=== PATIENT | female | born 1950 | race Caucasian/White ===

== ENCOUNTER → 2021-02-25 | Outpatient (CLI) | payer OTHER, BC ==
[~2021-02-25] MED LIST: ACIPHEX 20 MG T20 MG PO; AMITRIPTYLINE H25 M3 PO; AROMASIN25 MG PO; FAMOTIDINE 40 M40 M1 PO; JUICE PLUS PO; LEVOTHYROXINE112 MC1 PO; LUMIGAN5 ML OPHTHALMIC; OMEGA-3 FISH1200 MG PO; PROBIOTIC1 EAC7 PO; VITAMIN B COMP1 EACH PO; VITAMIN C1000 MG PO; WELLBUTRIN SR150 M1 PO
[2021-02-25 11:18] LABS: HEMATOCRIT 40.2 % (37.0-47.0); HEMOGLOBIN 13.5 gm/dL (12.0-15.0); MCHC 33.5 g/dL (28.0-37.0); MCV 92.5 fL (80.0-100.0); RBC 4.35 mil/uL (4.20-5.00); RDW 13.4 % (10.5-14.5); WBC 6.3 thou/uL (4.0-11.0)
[2021-02-25 11:31] LABS: ALBUMIN 3.8 g/dL (3.4-5.0); CALCIUM 9.2 mg/dL (8.5-10.1); CREATININE 1.3 mg/dL (0.6-1.0); POTASSIUM 3.9 mmol/L (3.5-5.1)
[2021-02-25 11:33] LABS: URINE BILIRUBIN NEGATIVE (Negative); URINE BLOOD NEGATIVE (Negative); URINE CLARITY CLEAR; URINE COLOR YELLOW; URINE GLUCOSE-RANDOM* NEGATIVE (Negative); URINE KETONES NEGATIVE (Negative); URINE NITRITE-REFLEX NEGATIVE (Negative); URINE PROTEIN (DIPSTICK) NEGATIVE (Negative); URINE UROBILINOGEN 0.2 E.U./dl (0.2-1.0)
[2021-02-25 11:34] LABS: URINE LEUKOCYTES-REFLEX 1+ (Negative)
[2021-02-25 11:44] LABS: INR 0.95; PROTIME 10.4 Seconds (10.5-12.1)
[2021-02-25 11:49] LABS: CASTS None Seen /LPF (None Seen); SQUAMOUS 0-3 Few /LPF (0-3)
[2021-02-25 11:50] LABS: BACTERIA-REFLEX None Seen /HPF (None Seen); CRYSTALS None Seen /LPF (None Seen); MUCUS 4-6 Moderate strn/LPF (None Seen); URINE RBC None Seen /HPF (NONE SEEN); URINE WBC-REFLEX 0-5 Rare /HPF (0-5)
--- NOTE | 2021-02-26 08:25 | EKG ---
[place] [address] [facility] 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 ANTHONY : 1950 Requested By: Mickey Isbell Order Number: [id number] MD: Davide Raphael Measurements Intervals Moose Rate: 97 P: 62 WY: 140 QRS: -19 QRSD: 84 T: 53 QT: 340 QTc: 432 Interpretive Statements Sinus rhythm cannot rule out inferior infarct, age indeterminate poor R wave progression No previous ECG available for comparison Electronically Signed On 02-26-2021 8:25:34 CDT by Davide Raphael [email or web address] <ELECTRONICALLY SIGNED> By: Davide Raphael MD, [facility] 02/26/21 0825 1114 1114 Davide Raphael MD, FACC /EPI
== END ==
LOC: PAC 10:42
PROVIDERS: ATTEND Orthopaedic Surgery
DX: M17.12 Unilateral primary osteoarthritis, left knee (principal)

== ENCOUNTER 2021-03-06 06:56 | Observation (INO) | payer OTHER, BC ==
[~2021-03-06] VITALS: Ht 170.2 cm; Wt 90.7 kg
--- NOTE | ~2021-03-06 | O ---
[facility] [place] [address] [place] [address] OPERATIVE REPORT Name: LEO MARTIN Room #: 150-4 [facility] M.R.#: [id number] Admission: 03/06/21 Attend Phys: Mickey Isbell MD Discharge: Date of : 52 Report #: [id number] THIS REPORT FOR: cc: Aissatou Hudson, Aissatou Camp,Mickey Camacho MD ~ DATE OF SERVICE: 03/06/2021 PREOPERATIVE DIAGNOSIS: Left knee osteoarthritis. POSTOPERATIVE DIAGNOSIS: Left knee osteoarthritis. PROCEDURE: Left total knee arthroplasty using Navio robotic assistance. SURGEON: Mickey Isbell MD. TOLL REPAIRER CENTRAL OFFICE: Destiny Bronson PA-C. INDICATION FOR TOLL REPAIRER CENTRAL OFFICE: Throughout the case, extensive retraction, manipulation of the knee was required. This was afforded to me by my insurance claims assistant. ANESTHESIA: LMA with adductor canal block. IMPLANTS: [employer] size 4 Journey II BCS Oxinium femur, size 3 tibia, size 32 patella and a size 11 polyethylene. TOURNIQUET TIME: 55 minutes. ESTIMATED BLOOD LOSS: 25 mL COMPLICATIONS: None. SPECIMENS: None. CONDITION UPON LEAVING THE OPERATING ROOM: Stable. INDICATIONS FOR PROCEDURE: The patient is a 70-year-old female with left knee osteoarthritis. She had failed conservative measures for this and after discussion with her, she elected for left total knee arthroplasty. DESCRIPTION OF PROCEDURE: Risks, benefits, alternatives, complications were discussed in detail with the patient including but not limited to risk of anesthesia, risk of damage to nerves, arteries, blood vessels, risk for infection, bleeding, risk for continued knee pain and need for reoperation. Informed consent was obtained from the patient. Left knee was appropriately marked in the preoperative holding area. IV Ancef was given for preoperative [facility] [address] [address] OPERATIVE REPORT Name: LEO MARTIN SIVA Room #: 150-4 [facility] Freddy#: [id number] Admission: 03/06/21 Attend Phys: Mickey Isbell MD Discharge: Date of : 52 Report #: [id number] antibiotics. She was brought to the operating room and placed in supine position on the operating table. LMA anesthesia was induced without complication. Tourniquet was placed on the left thigh. Left lower extremity was prepped and draped in normal sterile fashion. Timeout was performed properly identifying the patient and procedure as well as instrumentation. All in the operating room in agreement. Left lower extremity was exsanguinated, tourniquet was inflated. Tourniquet time was 55 minutes. Standard midline approach to the knee was made with 10 blade through the skin. Dissection was taken down sharply to the fascia and deep flaps were developed medially and laterally. Fresh 10 blade was used to make a medial parapatellar arthrotomy and the knee was inspected. There was severe patellofemoral compartment osteoarthritis with moderate medial and lateral compartment osteoarthritis. ACL and PCL were removed sharply. Reference pins were placed in the femur and the tibia. The knee was digitally mapped using the Fit Steps robotic system. Intraoperative plan was made. We sized the size 4 femur, the size 3 tibia and a 10 spacer. After acceptance of the intraoperative plan, the distal femoral cut was made with Navio bur. Distal femoral cutting block was pinned in place and chamfer cuts were made. Attention was turned to the tibia. Remainder of the menisci removed with Bovie cautery. Tibial resection guide was pinned in place using Navio for placement. Tibial resection was made. Flexion and extension gaps were checked and found to have good balance in flexion and extension both medially and laterally. Tibia sized, found to be a size 3. A size 3 tibial trial was placed, pinned and punch. A size 4 femoral trial was placed and box cut was made. This was then trialed with a size 10 and then a size 11 polyethylene. Size 11 polyethylene demonstrated 1-2 mm laxity medially and laterally throughout range of motion of the knee. A 9 mm of bone was resected from the posterior surface of the patella and a size 32 patellar trial button was placed. Knee was taken through range of motion, found to be stable, found to have good patellar tracking. Trial components were removed. Bone ends were thoroughly irrigated with normal saline. A final size 3 tibia, size 4 Journey II BCS Oxinium femur and a size 32 patella were cemented in place using standard cementation techniques. While the cement cured, a periarticular injection consisting of morphine, ropivacaine, epinephrine, Toradol was placed around the knee joint capsule. After the cement cured, tourniquet was deflated. Hemostasis was obtained with Bovie cautery. A final size 11 polyethylene was placed. A gram of vancomycin was placed deep in the joint. Fascia was closed with 0 Vicryl. Skin was closed with 2-0 Vicryl, 3-0 Monocryl. Dermabond and a IGNACIO dressing was applied. The patient tolerated this procedure well and went to recovery room under care of anesthesia postoperatively. By: 1002 1035 Mickey Isbell MD /nt
[2021-03-06 07:47] VITALS: BP 131/65
[2021-03-06 16:00] VITALS: BP 126/67
--- NOTE | 2021-03-06 16:09 | NUR ---
DX: Left Knee OA. Surgery today. She resting will cont. following as needed.
--- NOTE | 2021-03-06 18:30 | NUR ---
PT RECEIVED FROM [facility] RM AT 1310 ALERT AND IN NO PAIN. WORKED W/ THERAPY AND WALKED IN HALLS. PT DOING WELL. NO C/O PAIN. IV FLUIDS INFUSING. VOIDING IN BR.
[2021-03-06 19:08] VITALS: BP 141/69
--- NOTE | 2021-03-07 04:49 | NUR ---
ASSUMED PT CARE AT 1900.PT UP WITH SBA /GB AND WALKER TO THE TOILET,GOOD ENDURANCE NOTED.NO C/O PAIN NOTEDSO FAR FROM PT.DRSG C/D/I WITH POLAR PACK IN PLACE.PT CONT ON IVF AND IV ABX ORDERED.PT ABLE TO MAKE HER NEEDS KNOWN.CALL LIGHT WITHIN REACH.
[2021-03-07 05:01] VITALS: BP 119/59
[2021-03-07 07:49] VITALS: BP 118/64
--- NOTE | 2021-03-07 09:34 | NUR ---
Cm visited with patient at bedside, she was up in recliner chair. just finished working with PT. Independent, lives home with spouse madan. Has a cane and walker if needed. Daughter will transport her home a dc. Outpatient therapy set up for 03/10/21 at [facility].
--- NOTE | 2021-03-07 09:55 | NUR ---
ASSUMED PT CARE THIS AM. PT IS ALERT & ORIENTED X4. PT HAS IV SITE ON L HAND. PT IS UP WITH ASSIST X1 TO THE BATHROOM. PT WORKED WITH PHYSICAL THERAPY THIS AM. PER PHYSICAL THERAPY OK AND SAFE TO GO HOME. PT HAS [facility]IL[employer] [employer] [facility], POLAR CARE AND SCD. PT IS ON ROOM AIR. GIVEN PAIN MEDICATION ORDERED AND SCHEDULED. AWAITING FOR DC ORDERS. WILL CONTINUE TO MONITOR PT. FOLLOW POC.
[2021-03-07 12:38] VITALS: BP 118/64
== END 2021-03-07 13:32 | disposition home or self-care (01) ==
LOC: OR → TBA 06:57 → PRE 07:30 → OR 08:57 → EDSTATUS 09:58 → PRE 10:58 → OR 12:55 → PRE 13:08 → OR 13:11 → PRE 13:12 → 4S 13:12 → OR 13:41 → 4S 03-07 13:32
PROVIDERS: ADMIT Orthopaedic Surgery; ATTEND Orthopaedic Surgery
DX: M17.12 Unilateral primary osteoarthritis, left knee (principal); Z20.822 Contact with and (suspected) exposure to COVID-19; K21.9 Gastro-esophageal reflux disease without esophagitis; Z79.899 Other long term (current) drug therapy
CPT/HCPCS: 50010; 50101; 50415; 50954; 51130; 51225; 51320; 52001; 52282; 53078; 53365; 54118; 56527; 56528; 57095; 57103; 57110; 57127; 57180; 62110; 62900; 70005